=== PATIENT | female | born 1930 | race Caucasian/White ===

== ENCOUNTER → 2016-10-10 | Outpatient (CLI) | payer OTHER ==
[~2016-10-10] MED LIST: EXFORGE; LISI40TA PO; MULT60CA PO; TRAM-10 PO; VERA120T15 PO
[2016-10-10 13:35] LABS: BASO % 0.3 %; BASO ABS # 0.02 K/uL (0-0.2); COMPLETE YES; EOS % 1.1 %; HEMATOCRIT 39.9 % (37-47); IG% 0.2 %; LYMPH % 27.5 %; LYMPH ABS # 1.79 K/uL (1.2-3.4); MEAN CELL VOLUME 87.1 fL (80-100); MEAN CORPUSCULAR HGB CONC 33.3 g/dl (32-36); MEAN PLATELET VOLUME 9.6 fL (7.4-10.4); MONO % 7.7 %; NEUT % 63.2 %; PLATELET COUNT 300 K/uL (130-400); RED BLOOD COUNT 4.58 M/uL (4.2-5.4)
[2016-10-10 13:47] LABS: BLOOD UREA NITROGEN 16 mg/dl (7-18); BUN/CREATININE RATIO 25.5 (10-20); CALCIUM 8.3 mg/dl (8.5-10.1); CARBON DIOXIDE 29 mmol/L (21-32); CHLORIDE 105 mmol/L (98-107); CREATININE 0.62 mg/dl (0.60-1.20); GLUCOSE 86 mg/dl (70-99); SODIUM 140 mmol/L (136-145)
[2016-10-10 13:57] LABS: CHOLESTEROL 260 mg/dl (0-200); HDL CHOLESTEROL 65 mg/dl; LDL CHOLESTEROL CALCULATED 181 mg/dl; TRIGLYCERIDES 69 mg/dl (0-150); VERY LOW DENSITY LIPOPROT CALC 14 mg/dl
== END | disposition home or self-care (01) ==
LOC: C.LABBC 11:53
PROVIDERS: ATTEND Internal Medicine Geriatric Medicine
DX: I10 Essential (primary) hypertension (principal); E78.5 Hyperlipidemia, unspecified; R53.83 Other fatigue

== ENCOUNTER → 2016-12-16 | Outpatient (CLI) | payer OTHER ==
--- NOTE | 2016-12-16 11:18 | DIAGNOSTIC IMAGING REPORT ---
BILATERAL LOWER EXTREMITY VENOUS DOPPLER CLINICAL HISTORY: Edema. COMPARISON STUDY: No previous studies for comparison. TECHNIQUE: Sonography of the deep venous system of the bilateral lower extremities was performed. Compression and augmentation were evaluated. FINDINGS: The common femoral, superficial femoral and popliteal veins were compressible. Augmentation was normal. Flow was shown within the deep calf vessels. IMPRESSION: No evidence of deep venous thrombus within the bilateral lower extremities. Electronically signed by: Jonathan Ribera M.D. 12/16/2016 11:17 AM Dictated Date/Time: 12/16/2016 11:16 AM
== END | disposition home or self-care (01) ==
LOC: C.ULTRBC 10:43
PROVIDERS: ATTEND Physician Assistant
DX: R60.9 Edema, unspecified (principal)

== ENCOUNTER → 2016-12-20 | Outpatient (CLI) | payer OTHER ==
[2016-12-20 13:53] LABS: BLOOD UREA NITROGEN 18 mg/dl (7-18); BUN/CREATININE RATIO 26.8 (10-20); CALCIUM 8.6 mg/dl (8.5-10.1); CARBON DIOXIDE 31 mmol/L (21-32); CHLORIDE 106 mmol/L (98-107); CREATININE 0.68 mg/dl (0.60-1.20); GLUCOSE 90 mg/dl (70-99); SODIUM 142 mmol/L (136-145)
== END | disposition home or self-care (01) ==
LOC: C.LABBC 11:09
PROVIDERS: ATTEND Physician Assistant Medical
DX: R60.9 Edema, unspecified (principal)

== ENCOUNTER 2017-01-05 14:06 | Emergency (ER) | payer OTHER ==
[~2017-01-05] VITALS: Ht 162.6 cm; Wt 73.5 kg
[~2017-01-05 14:06] MED LIST changes: -MULT60CA PO
[2017-01-05 14:12] VITALS: TEMP 37; Ht 162.6 cm; Wt 73.5 kg
--- NOTE | 2017-01-05 14:59 | DIAGNOSTIC IMAGING REPORT ---
RIGHT FEMUR 2 VIEWS ROUTINE CLINICAL HISTORY: Right femoral pain status post trauma COMPARISON: None. DISCUSSION: No acute fractures or dislocations are visualized. There are degenerative changes present the knee. There are vascular calcifications present. The bones are osteopenic. IMPRESSION: No fractures or dislocations identified. Electronically signed by: Vic Bhatia M.D. 01/05/2017 2:58 PM Dictated Date/Time: 01/05/2017 2:57 PM
--- NOTE | 2017-01-05 15:00 | DIAGNOSTIC IMAGING REPORT ---
RIGHT KNEE 1 OR 2 VIEWS ROUTINE CLINICAL HISTORY: Right knee pain status post trauma COMPARISON: None. DISCUSSION: The bones are osteopenic. No acute fractures are visualized. There are degenerative changes most pronounced involving the lateral joint compartment patellofemoral joint. There is no radiographic evidence of significant joint effusion. Gastric calcifications are evident. IMPRESSION: Moderate degenerative change. No acute fractures. Electronically signed by: Vic Bhatia M.D. 01/05/2017 2:59 PM Dictated Date/Time: 01/05/2017 2:58 PM
[2017-01-05] MEDS ORDERED: MULT60CA PO (15:18)
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
[2017-01-05 15:29] VITALS: BP 140/62; PULSE 86; O2SAT 94
== END 2017-01-05 15:54 | disposition home or self-care (01) ==
LOC: EDBD 14:06 → C.EDC 14:07
DX: S89.91XA Unspecified injury of right lower leg, initial encounter (principal); S30.1XXA Contusion of abdominal wall, initial encounter; V99.XXXA Unspecified transport accident, initial encounter; K44.9 Diaphragmatic hernia without obstruction or gangrene; K57.90 Diverticulosis of intestine, part unspecified, without perforation or abscess without bleeding; M47.897 Other spondylosis, lumbosacral region; M81.0 Age-related osteoporosis without current pathological fracture

== ENCOUNTER → 2017-01-15 | Outpatient (CLI) | payer OTHER ==
[~2017-01-15] MED LIST changes: -EXFORGE; +MULT60CA PO
--- NOTE | 2017-01-15 10:38 | DIAGNOSTIC IMAGING REPORT ---
SINGLE VIEW PELVIS CLINICAL HISTORY: Right hip pain. FINDINGS: An AP pelvic radiograph is compared to study dated 01/16/2015. The skeletal structures are osteopenic. There is no radiographic evidence of fracture in the hips or bony pelvis. Mild to moderate arthritic change is seen in the hips, left greater than right. Sclerotic change is noted the sacroiliac joints. Small enthesophytes arise from the greater trochanter of the left femur. Lumbosacral spondylosis is partially imaged. There is a nonobstructed abdominal bowel gas pattern noting moderate colonic fecal retention. Postoperative change is noted in the mid abdomen. IMPRESSION: Osteopenia and degenerative change as above. No acute bony abnormality is seen in the hips or pelvis. Electronically signed by: Link Jennings M.D. 01/15/2017 10:37 AM Dictated Date/Time: 01/15/2017 10:35 AM
== END | disposition home or self-care (01) ==
LOC: C.RADBC 10:14
PROVIDERS: ATTEND Physician Assistant Medical
DX: M25.551 Pain in right hip (principal)

== ENCOUNTER → 2017-01-23 | Outpatient (CLI) | payer OTHER ==
--- NOTE | 2017-01-23 12:02 | DIAGNOSTIC IMAGING REPORT ---
Venous Doppler right leg RIGHT VENOUS DOPP LOWER EXT UNILAT CLINICAL HISTORY: R LEG PAIN/SWELLING/EDEMA Right posterior back pain TECHNIQUE: Real-time and Doppler COMPARISON STUDY: None FINDINGS: All major deep venous structures are intact. No evidence of deep venous thrombosis. The medial thigh is a linear slightly complex partially fluid collection measuring 9 x 3 x 4 cm. This process likely represents a posttraumatic hematoma. IMPRESSION: 1. Study is negative for deep venous thrombosis. 2. Hematoma versus seroma medial thigh presumably on a posttraumatic basis Electronically signed by: Karson Poole M.D. 01/23/2017 12:00 PM Dictated Date/Time: 01/23/2017 11:59 AM
== END | disposition home or self-care (01) ==
LOC: C.ULTRBC 11:14
PROVIDERS: ATTEND Physician Assistant Medical
DX: M25.561 Pain in right knee (principal); R60.0 Localized edema

== ENCOUNTER → 2017-04-22 | Outpatient (CLI) | payer OTHER ==
[2017-04-22 13:52] LABS: BLOOD UREA NITROGEN 19 mg/dl (7-18); BUN/CREATININE RATIO 25.3 (10-20); CARBON DIOXIDE 31 mmol/L (21-32); CHLORIDE 99 mmol/L (98-107); CREATININE 0.74 mg/dl (0.60-1.20); GLUCOSE 101 mg/dl (70-99); POTASSIUM 3.9 mmol/L (3.5-5.1); SODIUM 137 mmol/L (136-145)
== END | disposition home or self-care (01) ==
LOC: C.LABBC 11:23
PROVIDERS: ATTEND Physician Assistant Medical
DX: R60.9 Edema, unspecified (principal)

== ENCOUNTER → 2017-12-03 | Outpatient (CLI) | payer OTHER ==
[2017-12-03 13:49] LABS: ALBUMIN 3.8 gm/dl (3.4-5.0); AST/SGOT 17 U/L (15-37); BLOOD UREA NITROGEN 19 mg/dl (7-18); CALCIUM 8.6 mg/dl (8.5-10.1); CARBON DIOXIDE 28 mmol/L (21-32); CREATININE 0.84 mg/dl (0.60-1.20); GLUCOSE 97 mg/dl (70-99); SODIUM 137 mmol/L (136-145); TOTAL PROTEIN 7.7 gm/dl (6.4-8.2)
[2017-12-03 14:02] LABS: ALKALINE PHOSPHATASE 90 U/L (45-117); ALT/SGPT 25 U/L (12-78); CHOLESTEROL 257 mg/dl (0-200); LDL CHOLESTEROL CALCULATED 179 mg/dl
== END | disposition home or self-care (01) ==
LOC: C.LABBC 10:40
PROVIDERS: ATTEND Physician Assistant Medical
DX: E78.5 Hyperlipidemia, unspecified (principal); I10 Essential (primary) hypertension; E55.9 Vitamin D deficiency, unspecified